=== PATIENT | female | born 1990 | race Caucasian/White ===

== ENCOUNTER 2020-12-03 02:43 | Emergency (ER) | payer MEDICAID, OTHER ==
[~2020-12-03] VITALS: Ht 165.1 cm; Wt 118.8 kg
--- NOTE | 2020-12-03 02:49 | PHYS DOC ---
General Adult HPI: HPI: ".. I get these infections.. under my arm.. and I got one now... under this Lt arm.. " Patient is a 30 year old female who presents with above hx and complaints of wound on Lt. arm. Patient has bilateral scarring on her axillary areas from previous multiple I&D's for abscesses. Patient has classic findings of Hidradenitis Suppurtiva. Patient still uses drying deodorants and shaves her armpits. Impressed upon patient these could exacerbate her findings. Currently the area of tenderness in the left arm does not appear to be formed as fast but localized cellulitis. Patient denies any history immunosuppression. No recent travel. No specific ill contacts. Does follow-up with Dr. Pa. Patient past been treated with doxycycline. Does have a history of allergy to penicillin amoxicillin. Review of Systems: Review of Systems: Constitutional: Denies fever or chills Eyes: Denies change in visual acuity HENT: Denies nasal congestion or sore throat Respiratory: Denies cough or shortness of breath Cardiovascular: Denies chest pain or edema GI: Denies abdominal pain, nausea, vomiting, bloody stools or diarrhea : Denies dysuria Musculoskeletal: Denies back pain or joint pain Integument: Denies rash. Complains of cellulitis under left arm. Neurologic: Denies headache, focal weakness or sensory changes Endocrine: Denies polyuria or polydipsia Lymphatic: Denies swollen glands Psychiatric: Denies depression or anxiety Family History: Family History: Noncontributory to presentation Current Medications: Current Meds: See nursing for home meds Allergies: Allergies: Allergic to penicillin Physical Exam: PE: Constitutional: Moderate acute distress, non-toxic appearance. [] HENT: Normocephalic, atraumatic, bilateral external ears normal, oropharynx moist, no oral exudates, nose normal. [] Eyes: PERRLA, EOMI, conjunctiva normal, no discharge. [] Neck: Normal range of motion, no tenderness, supple, no stridor. [] Cardiovascular:Heart rate regular rhythm, no murmur [] Lungs & Thorax: Bilateral breath sounds equal apex auscultation [] Abdomen: Bowel sounds normal, soft, no tenderness, no masses, no pulsatile masses. [place] obese Skin: Warm, dry, no erythema, no rash. Is under both arms old and new skin breakdown-left side worse Back: No tenderness, no CVA tenderness. [] Extremities: No tenderness, no cyanosis, no clubbing, ROM intact, no edema. [] Neurologic: Alert and oriented X 3, normal motor function, normal sensory function, no focal deficits noted. [] Psychologic: Affect anxious , judgement normal, mood normal. [] EKG: EKG: [] Radiology/Procedures: Radiology/Procedures: [] Heart Score: C/O Chest Pain: N/A Risk Factors: Risk Factors: DM, Current or recent (<one month) smoker, HTN, HLP, family history of CAD, obesity. Risk Scores: Score 0 - 3: 2.5% MACE over next 6 weeks - Discharge Home Score 4 - 6: 20.3% MACE over next 6 weeks - Admit for Clinical Observation Score 7 - 10: 72.7% MACE over next 6 weeks - Early Invasive Strategies Course & Med Decision Making: Course & Med Decision Making Pertinent Labs and Imaging studies reviewed. (See chart for details) Patient use moist heat packs of salt water or Epson salts 4 times a day. After the very warm compresses massage and Polysporin. Patient take Bactrim DS twice a day. Patient follow-up primary care. Area of cellulitis Metformin abscess no drainage at that time. Take Tylenol and ibuprofen for pain. Patient may need extensive excision of scarred area to prevent recurrence. Encourage patient not to shave her armpits or use antiperspirant deodorants. May use perfume. After patient completes her course of Bactrim may take Diflucan for 3 days post antibiotics Impression: 1. Hidradenitis Suppurativa 2. Cellulitis [] Dragon Disclaimer: Simone Disclaimer: This electronic medical record was generated, in whole or in part, using a voice recognition dictation system. Departure Departure: Scripts Fluconazole (DIFLUCAN) 100 Mg Tablet 100 MG PO DAILY for post antibiotic, #3 TAB Prov: HOMA TOVAR MD 12/03/20 Sulfamethoxazole/Trimethoprim (BACTRIM DS TABLET) 1 Each Tablet 1 TAB PO BID for cellulitis for 14 Days, #28 TAB 0 Refills Prov: HOMA TOVAR MD 12/03/20 Simone Disclaimer This chart was dictated in whole or in part using Voice Recognition software in a busy, high-work load, and often noisy Emergency Department environment. It may contain unintended and wholly unrecognized errors or omissions. HOMA TOVAR MD Dec 03, 2020 02:49
[2020-12-03 03:10] VITALS: BP 126/92
[2020-12-03] MEDS ORDERED: SMZ/TMP 800/160MG TABLET. PO ONE (03:15)
[2020-12-03] MEDS ORDERED: HYDROcodon/IBUPROFEN 7.5/200MG 1 TAB TABLET PO ONE (03:15)
[2020-12-03] MEDS ORDERED: SULF1TAB24 PO (03:23)
[2020-12-03] MEDS ORDERED: FLUC100T7 PO (03:23)
== END 2020-12-03 04:03 | disposition home or self-care (01) ==
LOC: ER 02:43
DX: L73.2 Hidradenitis suppurativa (principal); L03.114 Cellulitis of left upper limb
CPT/HCPCS: 99283-25

== ENCOUNTER 2021-01-31 15:52 | Emergency (ER) | payer OTHER ==
[~2021-01-31] VITALS: Ht 165.1 cm; Wt 115.0 kg
[~2021-01-31 15:52] MED LIST: FLUC100T7 PO; SULF1TAB24 PO
[2021-01-31 16:23] VITALS: BP 130/59
[2021-01-31] MEDS ORDERED: BENZ1LOZ48 PO (17:27)
--- NOTE | 2021-01-31 17:30 | PHYS DOC ---
Past History Past Surgical History: Cholecystectomy, Alcohol Use: None General Adult EDM: Chief Complaint: CONGESTION HPI: HPI: 30-year-old obese female who denies any significant past medical history, presents the ED with complaints of dry cough, sore throat and runny nose for the past 3 days. Patient presents with her mom has lupus and is freaking out whether or not she may have Covid. Patient is not vaccinated for Covid or influenza. Reports she has a friend who was admitted to this hospital for Covid infection but was not exposed to her in the past 2 weeks. Has no underlying lung disease. Is not a tobacco smoker. Review of Systems: Review of Systems: Constitutional: Denies fever or chills Eyes: Denies change in visual acuity HENT: Denies nasal congestion or eye drainage Respiratory: Denies hemoptysis or shortness of breath Cardiovascular: Denies chest pain or edema GI: Denies abdominal pain, nausea, vomiting, bloody stools or diarrhea : Denies dysuria or vaginal bleeding Musculoskeletal: Denies back pain or joint pain Integument: Denies rash or diaphoresis Neurologic: Denies headache, focal weakness or sensory changes Endocrine: Denies polyuria or polydipsia Lymphatic: Denies swollen glands Psychiatric: Denies depression or anxiety Allergies: Allergies: Allergies Coded Allergies Type Severity Reaction Last Updated Verified Penicillins Allergy Unknown 12/03/20 Yes amoxicillin Allergy Unknown 12/03/20 Yes Physical Exam: PE: Constitutional: Well developed, well nourished, no acute distress, non-toxic appearance. HENT: Normocephalic, atraumatic, uvula midline, no pharyngeal erythema or exudates Eyes: EOMI, conjunctiva normal, no discharge. Neck: Normal range of motion, supple, Cardiovascular: S1/2 present, regular rhythm Lungs & Thorax: Speaking in full sentences, bilateral equal chest rise, no tachypnea or increased work of breathing Skin: Warm, dry, no erythema, no rash. [] Extremities: No tenderness, no cyanosis, Neurologic: Alert and oriented X 3, normal motor function, normal sensory function, no focal deficits noted. [] Psychologic: Affect normal, judgement normal, mood normal. [] EKG: EKG: [] Radiology/Procedures: Radiology/Procedures: [] Heart Score: C/O Chest Pain: No Risk Factors: Risk Factors: DM, Current or recent (<one month) smoker, HTN, HLP, family history of CAD, obesity. Risk Scores: Score 0 - 3: 2.5% MACE over next 6 weeks - Discharge Home Score 4 - 6: 20.3% MACE over next 6 weeks - Admit for Clinical Observation Score 7 - 10: 72.7% MACE over next 6 weeks - Early Invasive Strategies Course & Med Decision Making: Course & Med Decision Making Pertinent Labs and Imaging studies reviewed. (See chart for details) COVID-19 CRITERIA: The patient was evaluated during the global COVID-19 pandemic, and that diagnosis was suspected/considered upon their initial presentation. Their evaluation, treatment and testing was consistent with current guidelines for patients who present with complaints or symptoms that may be related to COVID-19. Concern for dry cough, sore throat and runny nose concerning for upper respiratory infection in a well-appearing female. Patient hemodynamically stable with no respiratory distress-normal vital signs per RN. Will prescribe topical lozenge. Patient prefers to be called back regarding strep and Covid test results. Patient is penicillin allergic. Will discharge home with strict ED return precautions were given for stroke symptoms, chest pain, fever or increased work of breathing. Encouraged urgent outpatient follow-up with PMD for reevaluation-patient declined influenza testing and states if her symptoms persist she will be checked by her primary care physician. Life-threatening processes were considered but are low suspicion at this time, given history, physical exam and ED workup. Pt was educated on all prescription medications and adverse effects. All patient's questions were answered and pt was stable at time of discharge. Life/limb-threatening differential includes but is not limited to, airway emergency or respiratory distress/ARDS or fatigue or head or neck swelling, toxidrome, sepsis/shock, angioedema, anaphylaxis, congestive heart failure, myocarditis, acute myocardial infarction, dysrhythmias, cardiomyopathy, venous thromboembolism, pulmonary emboli, acute necrotizing hemorrhagic encephalopathy ,cerebral venous thrombosis, meningitis, encephalitis or CVA. I have spoken with the patient and/or caregivers. I explained the patient's condition, diagnoses and treatment plan based on the information available to me at this time. I have answered the patient and/or caregiver's questions and addressed any concerns. The patient and/or caregivers have a good understanding of patient's diagnosis, condition and treatment plan as can be expected at this point. Vital signs have been stable. Patient's condition is stable and appropriate for discharge from the emergency department. Patient will pursue further outpatient evaluation with primary care physician or other designated or consulting physician as outlined in the discharge instructions. The patient and/or caregivers are agreeable to this plan of care and follow-up instructions have been explained in detail. The patient and/or caregivers have received these instructions in written form and have expressed an understanding of the discharge instructions. The patient and/or caregivers are aware that any significant change of condition or worsening of symptoms shou ld prompt immediate return to this or the closest emergency department or call to [employer] Simone Disclaimer: Poppin Disclaimer: This electronic medical record was generated, in whole or in part, using a voice recognition dictation system. Departure Departure: Impression: Primary Impression: Person under investigation for COVID-19 Additional Impression: URI (upper respiratory infection) Disposition: HOME / SELF CARE / HOMELESS Condition: STABLE Referrals: KRISTAN ESPINOZA (PCP) Follow up with your pcp in 1-2 days or [facility] [phone] OR [facility] Oshea [phone] Patient Instructions: Sore Throat, Upper Respiratory Infection, Adult Additional Instructions: Return to ED immediately if your oxygen level drops below 90% (purchase a pulse oximetry at a medical supply store), difficulties breathing including rapid breathing or increased work of breathing (skin sucking under ribs), chest pain or stroke-like symptoms (facial droop, speech changes, arm/leg weakness). EMERGENCY DEPARTMENT GENERAL DISCHARGE INSTRUCTIONS Thank you for coming to [facility] (ED) today and trusting us with you care. We trust that you had a positivie experience in our Emergency Department. If you wish to speak to the department management, you may call the director at [phone]. YOUR FOLLOW UP INSTRUCTIONS ARE FOLLOWS: 1. Do you have a private Doctor? If you do not have a private doctor, please ask for a resource list of physicians or clinics that may be able to assist you with follow up care. 2. The Emergency Physician has interpreted your x-rays. The X-Ray specialist will also review them. If there is a change in the findings, you will be notified in 48 hours when at all possible. 3. A lab test or culture has been done, your results will be reviewed and you will be notified if you need a change in treatment. ADDITIONAL INSTRUCTIONS AND INFORMATION: 1. Your care today has been supervised by a physician who is specially trained in emergency care. Many problems require more than one evaluation for a complete diagnosis and treatment. We recommend that you schedule your follow up appointment as recommended to ensure complete treatment of you illness or injury. If you are unable to obtain follow up care and continue to have a problem, or if your condition worsens, we recommend that you return to the ED. 2. We are not able to safely determine your condition over the phone nor are we able to give sound medical advice over the phone. For these safety reasons, if you call for medical advice we will ask you to come to the ED for further evaluation. 3. If you have any questions regarding these discharge instructions please call the ED at [phone]. SAFETY INFORMATION: In the interest of safety, wellness, and injury prevention; we encourage you to wear your sealbelt, if you smoke; quite smoking, and we encourage family to use a protective helmet for bicycling and other sporting events that present an increased risk for head injury. IF YOUR SYMPTOMS WORSEN OR NEW SYMPTOMS DEVELOP, OR YOU HAVE CONCERNS ABOUT YOUR CONDITION; OR IF YOUR CONDITION WORSENS WHILE YOU ARE WAITING FOR YOUR FOLLOW UP APPOINTMENT; EITHER CONTACT YOUR PRIMARY CARE DOCTOR, THE PHYSICIAN WHOSE NAME AND NUMBER YOU WERE GIVEN, OR RETURN TO THE ED IMMEDIATELY. Scripts Benzocaine/Menthol (CEPACOL SORE THROAT LOZENGE) 1 Each Lozenge 1 TAB PO Q4HRS for sore throat for 3 Days, #18 TAB 0 Refills Prov: BALDO MANLEY DO 01/31/21 BALDO MANLEY DO Jan 31, 2021 17:30
== END 2021-01-31 17:40 | disposition home or self-care (01) ==
LOC: ER 15:52
DX: J06.9 Acute upper respiratory infection, unspecified (principal); Z20.822 Contact with and (suspected) exposure to COVID-19; Z88.0 Allergy status to penicillin; Z88.1 Allergy status to other antibiotic agents
CPT/HCPCS: 87070; 87426; 87880; 99283; C9803; U0003